=== PATIENT | male | born 1980 | race Caucasian/White ===

== ENCOUNTER → 2016-03-31 | Outpatient (CLI) | payer OTHER ==
[~2016-03-31] MED LIST: ANTIBIOTIC
== END ==
LOC: COL.RAD 13:30
DX: R59.0 Localized enlarged lymph nodes (principal)

== ENCOUNTER → 2016-04-18 | Outpatient (REF) | LOC: WSOH 12:19 | DX: Z02.89 Encounter for other administrative examinations (principal) ==

== ENCOUNTER → 2016-05-06 | Outpatient (REF) | LOC: WSOH 05-04 10:25 | DX: Z00.00 Encounter for general adult medical examination without abnormal findings (principal) ==